=== PATIENT | female | born 1950 | race Caucasian/White ===

== ENCOUNTER → 2016-12-08 | Outpatient (CLI) | payer MEDICARE, OTHER ==
[~2016-12-08] MED LIST: AMBIEN PO; ASPIRIN PO; ATENOLOL PO; B COMPLEX1 CA1 PO; CLOTRIMAZOLE/BE15 G1 TP; COREG12.5 MG PO; CYMBALTA PO; DICYCLOMINE HCL20 MG PO; GLUCOSAMINE & C1 CAP PO; LISINOPRIL PO; NITROGYLCERIN SUBLINGUAL; PATANOL5 ML OP; PLAVIX PO; REFRESH15 ML OP; REMERON45 MG PO; SINGULAIR PO; SYNTHROID PO; VYTORIN 10/40 T1 TAB PO; XANAX0.5 MG PO; ZANTAC150 M1 PO; ZYRTEC10 M2 PO
--- NOTE | ~2016-12-08 | CR63 ---
[facility] A Service [facility] RADIOLOGY TEXT RESULTS PATIENT: JENNIFER CAROLINA LOCATION: [facility] : 50 UNIT #: [id number] AGE: [address]: Marquita Echavarria SEX: F ORDER DR: [id number] [place] [id number] O MR#: [id number] Acc #: [id number] NAME: JENNIFER CAROLINA : 1950 SEX: F STUDY DATE/TIME: 12/08/2016 15:08 UNIT: [facility] ROOM: STUDY DESCRIPTION: CR Chest 2 View Attending Physician: Marquita Echavarria A.P.R.N. Referring Physician: Marquita Echavarria A.P.R.N. Ordering Physician: Marquita Echavarria A.P.R.N. Primary Care Physician: Marquita Echavarria A.P.R.N. MEDICAL IMAGING REPORT This report is preliminary unless electronic signature is present. EXAM 2 view chest. INDICATIONS Cough, chest pain since the end of November 24, 2016 PROCEDURE Frontal and lateral views of the chest. COMPARISON None. FINDINGS Mild cardiomegaly. Mild diffuse interstitial prominence. No dense consolidation, effusion or pneumothorax. IMPRESSION No dense consolidation. Mild diffuse interstitial prominence may represent chronic change. There are no prior studies at this facility. Dictated by... Edinson Carl M.D. THIS IS AN ELECTRONICALLY VERIFIED REPORT Edinson Carl M.D. at 12/09/2016 7:06 AM HAYLEY/alexis TD: 12/08/2016 19:01 JOB #: [id number] [facility] A [facility] RADIOLOGY TEXT RESULTS PATIENT: JENNIFER CAROLINA LOCATION: [facility] : 50 UNIT #: [id number] AGE: [address]: Marquita Echavarria SEX: F ORDER DR: MEDICAL IMAGING REPORT Page 1 of 1
== END | disposition home or self-care (01) ==
LOC: SRAD 15:00
DX: R05 Cough (principal)
CPT/HCPCS: 71020